=== PATIENT | male | born 1955 | race Caucasian/White ===

== ENCOUNTER 2025-05-18 08:46 | Emergency (ER) | payer MEDICARE, BC, SELFPAY ==
--- OUTSIDE RECORDS SUMMARY | 2021-01-29 07:45 | XMS_ITS | Continuity of Care Document ---
Author Organization [facility] Address [address] [place] [address] Phone Care Team Providers Care Projects Manager Name Role Phone Shmuel FORBES MD, Nicolle Unavailable Unavailab le Dwayne, Stefanie Sue Unavailable Unavailable Procedures Procedure Date ADM SARSCOV2 100MCG/0.5ML2ND SARSCOV2 VAC 100MCG/0.5ML IM ADM SARSCOV2 100MCG/0.5ML1ST SARSCOV2 VAC 100MCG/0.5ML IM Advance Directives Directive Yes / No Effective Date File Name No Information Encounters Encounter Description Practice Location Reason(s) For Visit Diagnoses Date Provider Providers Copied on Encounter [address], [address], tel:[phone] [facility] covid vaccine (chief complaint) No Information Shmuel Valverde. [address] [place] [address], [id number], . tel:[phone] Referring Provider: Nicolle Mi MD, [address] [place] [address], [id number]. tel:[phone] ing Provider: Stefanie Rice, [address] [place] [address], [id number]. [facility], [address] [place] [address], [id number], [place] tel:[phone] [facility] No Information Alon Blue. [address] [place] [address], [id number], . tel:[phone] Consulting Provider: [email or web address], [address] [place] [address], [id number]. tel:[phone] Family History Family Member Type Diagnosis Age At Onset No Information Immunizations Vaccine Date Status Comments Moderna - COVID-19 Vaccine administered N ote: covid vaccine was verified by provider before administrating.patient waited 15min no reaction. ; Source: New Immunization Record Moderna - COVID-19 Vaccine administered N ote: Patient waited for 15 minutes. No reaction. ; Source: New Immunization Record Payers Payer name Insurance type Covered democrat ID Authoriza tion(s) [facility] [id number] [facility] [id number] [facility] [id number] Social History Type Description Quantity Date Captured Comments Alcohol Use Details Unknown Caffeine Use Details Unknown Tobacco Use Status No Information Smoking Status No Information Sex Male Chief Complaint And Reason For Visit From encounter dated '01/29/2021 12:45'. covid vaccine (chief complaint) Plan Of Treatment Date Type Action Status Goal Lipid panel. Due on due Goal Diabetes Screening. Due on M due Goal Influenza vaccine. Due on due Goal FOBT. Due on due Goal PPD (TST). Due on due Goal Hepatitis C Screening. Due o n due Goal Colonoscopy. Due on due Goal Td vaccine. Due on due Goal Tdap. Due on due Goal Hematocrit. Due on due History Of Present Illness Encounter Date Complaint History Of Prese nt Illness covid vaccine Instructions Date Instruction Additional Infor mation No Information Assessments Type Assessment Date No Information
--- OUTSIDE RECORDS SUMMARY | 2025-03-28 08:10 | XMS_ITS | Continuity of Care Document ---
Author Name [facility] Organization [facility] Care Team Providers Care Technician Inventory Specialist Name Role Phone [facility] Unavailable Unavailable Problems Combined list of problems from Department of Defense and [facility] facilities. It does not include entries that were removed or entered in error. Problem Status Onset Date Problem Type Date of Resolution Comments Source Allergic rhinitis Active Condition [facility] C5 fracture s/p fusion (2007) Active Condition [facility] Exposure to potentially hazardous substance Active Condition Apr 09, 2023 Entered By: RYAN STEPHENS JR Comment: [employer] [facility] Gastroesophageal reflux disease Active Condition [facility] Irritable bowel syndrome Active Condition [facility] Sleep disorder Active Condition [facility] Diagnosis: ICD-10-CM H25.13 Age-related nuclear cataract, bilateral Active Diagnosis [facility] Immunizations Combined list of available immunizations from the Department of Defense and [facility] facilities. Immunization Series Date Given Administered By Site Reaction Lot Number CVX Code Drug Splitter Machine Status Comments Source COVID-19 (MODERNA), MRNA, LNP-S, PF, 100 MCG/0.5ML DOSE OR 50 MCG/0.25ML DOSE 4 2021 207 complet ed MOD; [id number]; 2 [facility] HEP A-HEP B 3 2021 104 complet ed [facility] HEP A-HEP B 2 2021 104 complet ed [facility] COVID-19 (MODERNA), MRNA, LNP-S, PF, 100 MCG OR 50 MCG DOSE 3 2021 207 complet ed MOD; [id number]; 2 [facility] HEP A-HEP B 1 2021 104 complet ed [facility] ZOSTER RECOMBINANT [address] [facility] INFLUENZA, INJECTABLE, QUADRIVALENT, PRESERVATIVE FREE [address] [facility] ZOSTER RECOMBINANT 1 2020 187 complet ed [facility] COVID-19 (MODERNA), MRNA, LNP-S, PF, 100 MCG/0.5 ML DOSE 2 2020 207 complet ed [facility] COVID-19 (MODERNA), MRNA, LNP-S, PF, 100 MCG/0.5 ML DOSE 1 2020 207 complet ed [facility] COVID-19 (MODERNA), MRNA, LNP-S, PF, 100 MCG/0.5 ML DOSE 1 2020 207 complet ed [facility] INFLUENZA, INJECTABLE, QUADRIVALENT, PRESERVATIVE FREE 2019 150 complet ed [facility] INFLUENZA, INJECTABLE, QUADRIVALENT, PRESERVATIVE FREE 2018 150 complet ed [facility] TDAP 2016 115 complet ed [facility] Encounters Combined list of: 1) Encounters from Department of Veterans Affairs facilities going backup to the last 18 months, not all VA inpatient encounters are included; 2) Encounters from the Department of [employer] facilities going backup to 280 months. Location Location Details Encounter Type Encounter Number Reason For Visit Attending Provider ADM Date DC Date Status Disposition Source [facility] Outpatient Encounter [id number] 04/07 [facility] OFFICE O/P EST MOD 30 MIN [id number] Diagnos is: ICD-10- CM H25.13 Age-rel ated nuclear catarac t, bilater al ONEIL,AND REW 04/07 [facility] Outpatient Encounter [id number] 04/10 [facility] Outpatient Encounter [id number] 03/09 [facility] Outpatient Encounter [id number] 03/28 [facility] Social History Combined list of available smoking, tobacco, and other social history from Department of Defense and Veterans Affairs facilities. 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
[2025-05-18 08:51] VITALS: BP 151/80; PULSE 60; RESP 18; TEMP 36.7; O2SAT 98; BMI 29.8
--- NOTE | 2025-05-18 09:00 | W.ED.ABDPA2 ---
HPI - Abdominal Pain General: Chief Complaint: Abdominal Pain Stated Complaint: lower abo right side pain Time Seen by Provider: 05/18/25 08:55 Source: patient Mode of arrival: ambulatory Limitations: no limitations History of Present Illness: Patient is a nice 70-year-old male who presents to ED today with a complaint of right lower abdominal pain. He states pain began yesterday evening and kept him up all night and has been significantly uncomfortable this morning. He states he did have one similar episode a few days ago that seem to subside on its own. At that time he had noticed some dark urine and thought maybe this was secondary to dehydration so increased his water intake and this improved. He has no history of urolithiasis. No previous abdominal surgeries. He states he does have difficulty with urination and defecation since pain started. He is not running fevers. He states pain in his right lower abdomen seems to radiate around into his back to my kidney . MD elicited complaint: abdominal pain Pertinent past history: none Onset (ago): day(s) (yesterday) Pain Consistency: constant Location: RLQ Severity: severe Quality: stabbing and sharp Radiation: back (R back) Migration to: no migration Exacerbating factors: nothing Relieving factors: nothing Associated Symptoms: Reports nausea and other (trouble urinating/defecating ); Denies change in bowel habits, chills, constipation, diarrhea, dysuria, fever(s), hematochezia, melena and vomiting Related Data Previous Rx's ?Medication ?Instructions ?Recorded hydrocodone 5 mg-acetaminophen 325 1 tab PO .q 4-6 PRN pain #20 tabs 05/18/25 mg tablet ondansetron 4 mg disintegrating 4 mg PO Q8H PRN nausea and 05/18/25 tablet vomiting #14 tabs Allergies Allergy/AdvReac Type Severity Reaction Status Date / Time No Known Allergies Allergy Verified 05/18/25 08:56 Review of Systems Const: Denies: fever(s), chills, body aches, fatigue or malaise Card: Denies: chest pain Resp: Denies: dyspnea GI: Reports: abdominal pain, nausea and other (trouble urinating/defecating ); Denies: vomiting, diarrhea, constipation, change in bowel habits, rectal pain, hematochezia or melena : Reports: difficulty urinating and urinary hesitancy; Denies: flank pain, dysuria, urinary frequency or urinary urgency Musc: Reports: back pain (feels like abdominal pain radiates into back); Denies: neck pain, extremity pain, extremity swelling, joint pain, joint swelling or joint redness Skin/Breast: Denies: rash Neuro: Denies: headache(s), numbness in extremities, weakness in extremities, sensory changes or dizziness Physical Exam Const: COMMON NORMALS: average body habitus, patient oriented x3, no limitations, healthy appearing, alert and well nourished GENERAL APPEARANCE: cooperative and in distress (appears uncomfortable-declines pain medications) Eye: COMMON NORMALS: no scleral icterus Resp: COMMON NORMALS: normal respiratory effort and clear to auscultation bilaterally AUSCULTATION: clear to auscultation bilaterally Cardio: COMMON NORMALS: regular rate and regular rhythm RATE: regular rate RHYTHM: regular rhythm GI: COMMON NORMALS: Normal to inspection, nondistended, normoactive bowel sounds present, Soft to palpation, No hepatosplenomegaly present and no masses INSPECTION: Yes normal to inspection AUSCULTATION: Yes normoactive bowel sounds PALPATION: Yes Soft to palpation, Yes Tenderness to palpation present (GI) Details: RLQ, No Guarding due to palpation present (GI), No Rigid due to palpation and Yes No hepatosplenomegaly present OTHER: feels like pain radiates into back : BLADDER/KIDNEY EXAM: Yes CVA tenderness on the right (pain below R CVA radiating around to RLQ) Back/Pelvis: COMMON NORMALS: thoracic and lumbar spine normal to inspection, no thoracic nor lumbar tenderness, thoraco-lumbar ROM normal and straight leg raise negative bilaterally GENERAL BACK: Yes CVA tenderness Extremity: COMMON NORMALS: capillary refill normal, no clubbing, cyanosis or edema, no calf tenderness and no pedal edema GENERAL: Yes normal exam except as noted Neuro: COMMON NORMALS: patient oriented x3, moves all extremities, no focal motor deficits and no sensory deficits noted SENSORIUM/ORIENTATION: Yes alert Skin: COMMON NORMALS: no rashes or lesions noted GENERAL SKIN EXAM: no rashes or lesions noted Course Vital Signs: Vital signs: Vital Signs Temperature 98.0 F 05/18/25 08:51 Pulse Rate 60 05/18/25 08:51 Respiratory Rate 18 05/18/25 08:51 Blood Pressure 131/61 08/22/25 09:45 Pulse Oximetry 97 05/18/25 09:45 Oxygen Delivery Me thod Room Air 05/18/25 08:51 MDM - Abdominal Pain Medical Decision Making Patient is a nice 70-year-old male here for right sided lower abdominal pain radiating around into his back. History is consistent with urolithiasis. His vital signs are stable. Blood work overall is nonactionable. UA showing hematuria but does not appear infected. CT renal stone obtained and confirming a large 6.8 mm right distal ureter stone. Patient getting significant relief with one dose of IV Toradol. Patient already taking Flomax daily for BPH. He is stable for outpatient urology follow-up. He states he is traveling to [place] this weekend and then back home to [place] on Wednesday. Discussed prompt urology follow-up once he gets back home as there is a possibility that the size of the stone will require intervention. Discussed signs and symptoms that should prompt a medical re-evaluation over the weekend while he is in [place]. Medical Records I reviewed the patient's medical records. Lab Data I reviewed the patient's lab results. 05/18/25 09:06 05/18/25 09:06 Labs/Radiology: Radiology Impressions Abdomen/Pelvis CT 05/18/25 09:05 IMPRESSION: 1. Mild RIGHT hydroureteronephrosis secondary to 6.8 mm calcification in the distal RIGHT ureter. 2. No LEFT renal obstruction. 3. Normal appendix. 4. Small hiatal hernia. 5. Marked prostate gland enlargement. Laboratory Results WBC 12.87 10^3/uL (3.29-11.43) H 05/18/25 09:06 RBC 4.92 10^6/uL (3.85-5.65) 05/18/25 09:06 Hgb 14.00 g/dL (11.27-16.99) 05/18/25 09:06 Hct 42.6 % (37-53) 05/18/25 09:06 MCV 86.6 fl (82-101) 05/18/25 09:06 MCH 28.5 pg (27-33) 05/18/25 09:06 MCHC 32.9 g/dL (30-55) 05/18/25 09:06 RDW 13.2 % (12.1-15.1) 05/18/25 09:06 Plt Count 252 10^3/cmm (157-399) 05/18/25 09:06 MPV 12.3 fL (7.4-10.4) H 05/18/25 09:06 Neut % (Auto) 91.7 % 05/18/25 09:06 Lymph % (Auto) 5.7 % 05/18/25 09:06 [place] % (Auto) 2.3 % 05/18/25 09:06 Eos % (Auto) 0.0 % 05/18/25 09:06 Baso % (Auto) 0.1 % 05/18/25 09:06 Neut # (Auto) 11.80 10^3/uL (1.8-7.7) H 05/18/25 09:06 Lymph # (Auto) 0.7 10^3/uL (0.8-4.8) L 05/18/25 09:06 [place] # (Auto) 0.3 10^3/uL (0.2-0.9) 05/18/25 09:06 Eos # (Auto) 0.0 10^3/uL (0.0-0.8) 05/18/25 09:06 Baso # (Auto) 0.0 10^3/uL (0.0-0.1) 05/18/25 09:06 Nucleated RBC % (auto) 0 % 05/18/25 09:06 Nucleated RBCs # 0.0 /100WBC 05/18/25 09:06 Sodium 139 mmol/L (136-145) 05/18/25 09:06 Potassium 4.4 mmol/L (3.5-5.1) 05/18/25 09:06 Chloride 103 mmol/L (98-107) 05/18/25 09:06 Carbon Dioxide 21 mmol/L (22-29) L 05/18/25 09:06 Anion Gap 19.4 (5-19) H 05/18/25 09:06 BUN 14 mg/dL (8-23) 05/18/25 09:06 Creatinine 1.3 mg/dL (0.7-1.2) H 05/18/25 09:06 GFR Calculation 54.9 mL/min (90-130) L 05/18/25 09:06 Glucose 191 mg/dL (65-115) H 05/18/25 09:06 Calculated Osmolality 294 mOsm/kg (285-295) 05/18/25 09:06 Calcium 9.5 mg/dL (8.5-10.5) 05/18/25 09:06 Total Bilirubin 0.4 mg/dL (0.15-1.2) 05/18/25 09:06 AST 24 U/L (0-40) 05/18/25 09:06 ALT 24 U/L (0-41) 05/18/25 09:06 Alkaline Phosphatase 95 U/L (40-130) 05/18/25 09:06 Total Protein 7.2 g/dL (6.6-8.7) 05/18/25 09:06 Albumin 4.4 g/dL (3.5-5.2) 05/18/25 09:06 Globulin 2.8 g/dL (1.3-4.6) 05/18/25 09:06 Lipase 37 U/L (13-60) 05/18/25 09:06 Urine Color Yellow (Yellow) 05/18/25 10:05 Urine Appearance Clear (CLEAR) 05/18/25 10:05 Urine pH 5.5 (5-7) 05/18/25 10:05 Ur Specific [place] 1.008 (1.005-1.030) 05/18/25 10:05 Urine Protein Negative (Negative) 05/18/25 10:05 Urine Glucose (UA) Negative (Normal) 05/18/25 10:05 Urine Ketones Negative (Negative) 05/18/25 10:05 Urine Blood 3+ (Negative) A 05/18/25 10:05 Urine Nitrate Negative (Negative) 05/18/25 10:05 Urine Bilirubin Negative (Negative) 05/18/25 10:05 Urine Urobilinogen 1.0 mg/dL (Negative) 05/18/25 10:05 Ur Leukocyte Esterase Negative (Negative) 05/18/25 10:05 Urine RBC 21-50 /hpf (0-2) H 05/18/25 10:05 Urine WBC 0-5 /hpf (0-5) 05/18/25 10:05 Ur Squamous Epith Cells 0-5 /hpf (0-5) 05/18/25 10:05 Amorphous Sediment Not Reportable 05/18/25 10:05 Urine Bacteria None seen /hpf (NONE) 05/18/25 10:05 Hyaline Casts 0-4 /lpf H 05/18/25 10:05 All radiology interpretation(s) finalized by discharge Discharge Plan Discharge Patient Disposition: Home Clinical Impression: Right distal ureteral calculus Condition: Stable Prescriptions: New hydrocodone-acetaminophen 5-325 mg tablet 1 tab PO .q 4-6 PRN (Reason: pain) Qty: 20 0RF ondansetron 4 mg tablet,disintegrating 4 mg PO Q8H PRN (Reason: nausea and vomiting) Qty: 14 0RF Discharge Orders: Discharge ED (Routine); Ordered 05/18/25 Ordered By: Katerina Gautam Patient Instructions: Ureteral Stones (ED), Opioid Safety, Pain Management, Patient Portal & Barber Instructions Activity Restrictions/Additional Instructions: As we have discussed, you were found to have a large 6.8 mm stone to your distal right ureter. Pain was controllable here in the emergency department thus plan would be for you to continue your Flomax and prescribe you pain/nausea medications that you may use until follow-up with urology. You have indicated you will be traveling this weekend and headed home to [place] on Wednesday. We discussed prompt follow-up with urology when you return home. You will need to seek medical re-evaluation over the weekend if pain becomes severe or is uncontrollable with your pain medications, fevers, generally feeling worse or unwell, or any other concerns you may have. I hope you begin to feel better soon. Print Language: Mongolian Coding Level of Care Code ED Pinsetter Mechanic Automatic for August Clancy
--- NOTE | 2025-05-18 09:05 | CT_ITS ---
WS: [id number] CT ABDOMEN AND PELVIS NONCONTRAST HISTORY: right lower ab pain-radiates to back TECHNIQUE: Imaging performed through the abdomen and pelvis. Coronal and sagittal reformats are submitted. All CT scans at [facility] use at least one of these dose optimization techniques: automated exposure control; mA and/or kV adjustment per patient size (includes targeted exams where dose is matched to clinical indication); or iterative reconstruction. DLP: 853.75 mGy.cm COMPARISON: None available. Lower thorax: Lung bases are clear. Visualized heart is normal. Small hiatal hernia. Liver: Normal size liver. No mass or bile duct dilatation. Gallbladder: Normal gallbladder. No pericholecystic fluid or cholelithiasis. No gallbladder wall thickening. Pancreas: Normal size and attenuation. Normal pancreatic duct. No pancreatitis or mass. Spleen: Normal. Adrenal glands: Normal. No mass. Right kidney: Moderate perinephric and periureteral stranding. Mild hydroureteronephrosis secondary to a 6.8 mm calcification in the distal RIGHT ureter. No additional calcifications in the RIGHT kidney. Left kidney: Mild perinephric stranding. No calcifications or obstruction. Aorta: Mild atherosclerosis abdominal aorta with no aneurysm. No free fluid, intraperitoneal air or significant lymphadenopathy. GI tract: No GI tract obstruction. Normal appendix. Mild sigmoid diverticulosis without acute diverticulitis. Abdominal wall: Small umbilical hernia contains fat only. Pelvis: No free fluid. Marked enlargement of the prostate gland encroaching into the bladder. Osseous structures: Partial fusion SI joints. CT/CT kidney stone [id number] IMPRESSION: 1. Mild RIGHT hydroureteronephrosis secondary to 6.8 mm calcification in the d istal RIGHT ureter. 2. No LEFT renal obstruction. 3. Normal appendix. 4. Small hiatal hernia. 5. Marked prostate gland enlargement.
[2025-05-18 09:17] LABS: Hematocrit 42.6 % (37-53); Hemoglobin 14.00 g/dL (11.27-16.99); Mean Corpuscular HGB Conc 32.9 g/dL (30-55); Mean Corpuscular Hemoglobin 28.5 pg (27-33); Mean Corpuscular Volume 86.6 fl (82-101); Nucleated Red Blood Cells % 0 %; Platelet Count 252 10^3/cmm (157-399); Red Blood Count 4.92 10^6/uL (3.85-5.65); White Blood Count 12.87 10^3/uL (3.29-11.43)
--- OUTSIDE RECORDS SUMMARY | 2025-05-18 09:23 | XMS_ITS | Clinical Summary ---
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 90 tablet 3 12/26/19 25 026 Active tamsulosin (Flomax) 0.4 MG 24 hr capsuleIndicatio ns:Benign prostatic hyperplasia with urinary frequency TAKE 1 CAPSULE BY MOUTH ONCE DAILY 90 capsule 3 04/30/20 25 Active tamsulosin (Flomax) 0.4 MG 24 hr capsuleIndicatio ns:Benign prostatic hyperplasia with urinary frequency Take 1 capsule (0.4 mg total) by mouth 1 (one) time each day. 90 capsule 1 12/26/19 25 025 Discontinued Active Problems No known active problems Immunizations Immunization Administration Dates Next Due Hep A / Hep B 04/28/2022,11/25/2021,10/24/2021 Influenza Split High Dose Pr eservative Free IM (Fluzone) 07/28/2024 Influenza, Quadrivalent, Preservative Free 08/05,08/13/2020,08/15/2019 Moderna SARS-COV-2 Vaccination 04/28/2022,2021 Pfizer SARS-COV-2 Vaccinatio n 12 Years & Older 07/28/2024 Tdap 01/15/2017 Zoster, Recombinant 10/24/2021,08/05/2021 Social History Tobacco Use Types Packs/Day Years Used Date Smoking Tobacco: Never Smokeless Tobacco: Never PHQ-2 Answer Date Recorded Depression Risk 0 10/18/2024 Sex and Gender Information Value Date Recorded Sex Assigned at Male 12/10/2023 11:56 AM PDT Legal Sex Male 11:52 AM PDT Gender Identity Male 12/10/2023 11:56 AM PDT Sexual Orientation Straight 12/10/2023 11 :56 AM PDT Last Filed Vital Signs Vital Sign Reading Time Taken Comments Blood Pressure 165/88 10/26/2024 11:10 AM PST Pulse 73 10/26/2024 11:10 AM PST Temperature 36.3 C (97.3 F) 07/28/2024 2:17 PM PDT Respiratory Rate - - Oxygen Saturation - - Inhaled Oxygen Concentration - - Weight 101 kg (223 lb) 10/26/2024 11:10 AM PST Height 182.9 cm (6') 10/26/2024 11:10 AM PST Body Mass Index 30.24 10/26/2024 11:10 AM PST Plan of Treatment Health Maintenance Due Date Last Done Comments CT Colonography 1957 FIT-DNA (Cologuard) 1957 FIT 1957 FOBT 1957 Sigmoidoscopy 1957 Wellness Panel 1955 Pertussis Vaccine 01/15/2022 01/15/2017 Diabetes Screening 01/09/2025 01/10/2024, 01/10/2024 PSA Test 01/09/2025 01/10/2024 COVID-19 Vaccine ( season) 2025 07/28/2024, 04/28/2022, 10/24/2021, Additional history exists Advance Care Plan 04/27/2026 04/27/2025 DTaP/Tdap/Td Vaccines (2 - Td or Tdap) 01/15/2027 01/15/2017 Colonoscopy 11/08/2027 11/08/2017 Colorectal Cancer Screening 11/08/2027 Lipid Panel 01/09/2029 01/10/2024 Zoster Vaccines Completed 10/24/2021, 08/05/2021 Hepatitis A Vaccines Aged Out 04/28/2022, 11/25/2021, 10/24/2021 No longer eligible based on patient's age to complete this topic Hepatitis B Vaccines Completed 04/28/2022, 11/25/2021, 10/24/2021 Twinrix Vaccine Completed 04/28/2022, 09/2021, 10/24/2021 Influenza Vaccine Discontinued 07/28/2024, , 08/13/2020, Additional history exists HIB Vaccines Aged Out No longer eligi ble based on patient's age to complete this topic HPV Vaccines Aged Out No longer eligi ble based on patient's age to complete this topic IPV Vaccines Aged Out No longer eligi ble based on patient's age to complete this topic Meningococcal Vaccine Aged Out No yolette dorota eligible based on patient's age to complete this topic Procedures Procedure Name Priority Date/Time Associated Diagnosis Comments HEMOGLOBIN A1C Routine 01/10/2024 7:54 AM PDT Elevated fasting glucose LIPID PANEL Routine 01/10/2024 7:54 AM PDT Mixed hyperlipidemia PSA Routine 01/10/2024 7:54 AM PDT Screening for prostate cancer from Last 3 Months or Most Recently Relevant to Health Maintenance Results * PSA (01/10/2024 7:54 AM PDT) PSA 3.66 0.00 - 4.00 ng/mL 01/10/2024 4:46 PM PDT [facility] Main Laboratory Comment: Result obtained by [employer] Spacebik[employer] direct chemiluminometric immunoassay. Results obtained by other manufacturers/methods may not be comparable. Blood Venous blood specimen / Unknown 01/10/2024 7:54 AM PDT us Bon Khoury MD LAB BLOOD ORDERABLES Final Re sult [facility] Main Laboratory [address] [address] * (ABNORMAL) Hemoglobin A1c (01/10/2024 7:54 AM PDT) Hemoglobin A1C 5.6 <5.7 % 01/10/2024 6:49 PM PDT [facility] Main Laboratory Comment: HbF ( Hemoglobin) is not recognized by this test method. Individuals with elevated HbF, usually infants and some women, will not give accurate HbA1c results with this assay. Est Avg Gluc eAG 114(H) 65 - 110 mg/dL 01/10/2024 6:49 PM PDT [facility] Main Laboratory Blood Venous blood specimen / Unknown 01/10/2024 7:54 AM PDT us Bon Khoury MD LAB BLOOD ORDERABLES Final Re sult [facility] Main Laboratory [address] [place] [address] * (ABNORMAL) Lipid panel (01/10/2024 7:54 AM PDT) Cholesterol 208(H) <200 mg/dL 01/10/2024 11:39 PM PDT [facility] Main Laboratory Comment: Reporting ranges and interpretive comments have changed. Risk for Heart Disease: <200 mg/dL : Low-risk, desirable 200-239 mg/dL : Moderate risk, borderline high >240 mg/dL : High risk Triglycerides 231(H) <150 mg/dL 01/10/2024 11:39 PM PDT [facility] Main Laboratory Comment: New Formulation, Triglyceride reporting guidance has changed. The National Cholesterol Education Program and the [place] [employer] have stratified Heart Disease Risk at the following Adult Triglyceride levels. < 150 mG/dL Normal 150 - 199 mG/dL Mildly High 200 - 499 mG/dL High >/= 500 mG/dL Very High HDL 54 >39 mg/dL 01/10/2024 11:39 PM PDT [facility] Main Laboratory Comment: New Formulation, HDL reporting guidance has changed. The National Cholesterol Education Program suggests the following as a guideline for patient evaluation: Low (Undesirable, high risk) <40 Male Low (Undesirable, high risk) <50 Female High (desirable, low risk) >=60 T. Chol/HDL Ratio 3.9 2.0 - 5.0 11:39 PM PDT [facility] Main Laboratory Comment: . . . . MALE CORONARY HEART DISEASE RISK FEMALE 5.0 AVERAGE 4.4 9.6 2 x AVERAGE 7.1 23.4 3 x AVERAGE 11.0 ` ' ` ' LDL Calculated 108(H) <100 mg/dL 01/10/2024 11:39 PM PDT [facility] Main Laboratory Comment: LDL (Calculated) reporting guidance has changed. The National Cholesterol Education Program suggests the following as a guideline for patient evaluation: Optimal <100 Above Optimal 100-129 Borderline High 130-159 High 160-189 This is a calculated result. Calculated LDL results are less accurate as the Triglycerides value increases beyond 400 mg/dL. The LDL calculation will not be done with Triglycerides >400 mg/dL. A direct/measured LDL is available upon request. Blood Venous blood specimen / Unknown 01/10/2024 7:54 AM PDT us Bon Khoury MD LAB BLOOD ORDERABLES Final Re sult [facility] Main Laboratory [address] [place] [address] from Last 3 Months or Most Recently Relevant to Health Maintenance Insurance [address] [id number] [facility] Advance Directives For more information, please contact: [phone] (8AM - 5PM [facility], 7 days a week) Healthcare Agents on File Name Relationship Healthcare Agent Relationshi p Communication Cindi Strong Spouse Surrogate Decision Maker [email or web address] Teams Sheetmetal Patternmaker Relationship Specialty Start Date End Date Bon Khoury MD [address] [place] [id number] PCP - General Family Medicine 01/07/24
[2025-05-18 09:30] VITALS: BP 145/72; O2SAT 99
[2025-05-18 09:38] LABS: Alanine Aminotransferase 24 U/L (0-41); Albumin Level 4.4 g/dL (3.5-5.2); Alkaline Phosphatase 95 U/L (40-130); Anion Gap 19.4 (5-19); Aspartate Amino Transferase 24 U/L (0-40); Blood Urea Nitrogen 14 mg/dL (8-23); Calcium 9.5 mg/dL (8.5-10.5); Carbon Dioxide 21 mmol/L (22-29); Chloride 103 mmol/L (98-107); Creatinine Clr Calc Pharmacy 66.5200; Globulin 2.8 g/dL (1.3-4.6); Glucose 191 mg/dL (65-115); Lipase 37 U/L (13-60); Osmolality Calculated 294 mOsm/kg (285-295); Potassium 4.4 mmol/L (3.5-5.1); Sodium 139 mmol/L (136-145); Total Protein 7.2 g/dL (6.6-8.7)
[2025-05-18 09:45] VITALS: BP 131/61; O2SAT 97
[2025-05-18 10:17] LABS: Glucose Urine UA Negative (Normal); Nitrate Urine Negative (Negative); Specific Gravity, Urine 1.008 (1.005-1.030)
[2025-05-18 10:22] LABS: Add Urine Microscopic? YES
[2025-05-18 10:51] VITALS: BP 108/49; PULSE 63; O2SAT 96
== END 2025-05-18 10:52 | disposition home or self-care (01) ==
PROVIDERS: Emergency Provider Physician Assistant
DX: N20.1 Calculus of ureter (principal)
CPT/HCPCS: 36415; 74176; 80053; 81001; 83690; 85025; 87086; 96374; 99285; J1885; J7030